=== PATIENT | male | born 1945 | race Caucasian/White ===

== ENCOUNTER 2022-09-24 14:28 | Emergency (ER) | payer MEDICARE ==
[2022-09-24] MEDS ORDERED: LIDOCAINE 1% INJ 10MG/ML (30 ML VIAL-PF) SQ ONE (15:16)
[2022-09-24] MEDS ORDERED: DIPH,PERTUS(ACELL)TETVAC-LF 0.5 ML VIAL IM ONE (15:16)
--- NOTE | 2022-09-24 15:27 | ED ---
General Adult HPI - General Chief complaint: Wound/Laceration Stated complaint: Hand injury Time Seen by Provider: 09/24/22 15:10 Source: patient, RN notes reviewed Mode of arrival: ambulatory Limitations: no limitations - History of Present Illness Initial comments: 77-year-old male presents emergency department chief complaint left hand injury. Patient states she was setting up an extension ladder states the ladder came down onto his left hand. Patient has a laceration he is unsure when his last tetanus was. Patient complains of discomfort, bleeding. Patient denies any other associated injury he does complain of left ear drainage and which she wears urinates. Patient states been having for last several days. - Related Data Allergies Allergy/AdvReac Type Severity Reaction Status Date / Time amoxicillin Allergy Anaphylaxis Verified 09/24/22 14:51 clavulanic acid Allergy Anaphylaxis Verified 09/24/22 14:51 [From Augmentin] Review of Systems ROS Statement: Those systems with pertinent positive or pertinent negative responses have been documented in the HPI. ROS Other: All systems not noted in ROS Statement are negative. Past Medical History Past Medical History: No Reported History History of Any Multi-Drug Resistant Organisms: None Reported Past Surgical History: Tonsillectomy Past Psychological History: No Psychological Hx Reported Smoking Status: Never smoker Past Alcohol Use History: None Reported Past Drug Use History: None Reported General Exam Limitations: no limitations General appearance: alert, in no apparent distress Head exam: Present: atraumatic, normocephalic, normal inspection Eye exam: Present: normal appearance, PERRL, EOMI. Absent: scleral icterus, conjunctival injection, periorbital swelling ENT exam: Present: normal oropharynx, mucous membranes moist, TM's normal bilaterally. Absent: normal exam, normal external ear exam (Left EAC exudates noted) Neck exam: Present: normal inspection, full ROM. Absent: tenderness, meningismus, lymphadenopathy Respiratory exam: Present: normal lung sounds bilaterally. Absent: respiratory distress, wheezes, rales, rhonchi, stridor Cardiovascular Exam: Present: regular rate, normal rhythm, normal heart sounds. Absent: systolic murmur, diastolic murmur, rubs, gallop, clicks Extremities exam: Present: other (Left hand dorsal aspect there is semi- laceration irregular primary skin tear noted) Course Vital Signs 09/24/22 14:48 Temperature 98.3 F Pulse Rate 70 Respiratory 20 Rate Blood Pressure 169/82 O2 Sat by Pulse 99 Oximetry Procedures - Laceration Laceration #1 Consent Obtained: verbal consent Indication: laceration Site: hand Size (cm): 3 Description: stellate, flap, irregular Depth: simple, single layer Anesthesia Technique: local infiltration Amount (mls): 3 Pre-repair: wound explored, irrigated extensively, deep structures intact Type of Sutures: nylon Size of Sutures: 4-0 Number of Sutures: 3 Technique: simple, interrupted Patient Tolerated Procedure: well, no complications Medical Decision Making - Medical Decision Making X-rays negative for acute fracture. Patient's laceration was approximated along with skin tear. Patient does have otitis externa will be discharged on ciprofloxacin. Disposition Clinical Impression: Left otitis externa, Laceration of left hand Disposition: HOME SELF-CARE Condition: Stable Additional Instructions: Use 4 drops twice daily for 7 days. Have sutures removed in 10 days. Please return to the Emergency Department if symptoms worsen or any other concerns. Is patient prescribed a controlled substance at d/c from ED?: No Referrals: Nonstaff,Physician [Primary Care Provider] - 1-2 days Time of Disposition: 15:35
[2022-09-24] MEDS ORDERED: CIPROFLOXACIN-DEXAMETH 0.3-0.1% DROPS 7.5 ML BTL LEFT EAR STA (15:31)
--- NOTE | 2022-09-24 15:37 | XR ---
EXAMINATION TYPE: XR hand complete LT DATE OF EXAM: 09/24/2022 COMPARISON: NONE HISTORY: Pain TECHNIQUE: Three views are submitted. FINDINGS: The osseous structures are intact. Severe narrowing of the trapezial scaphoid joint. Diffuse osteopen ia. There appears to be subcutaneous emphysema along the dorsum the wrist which could be related to h istory of laceration. Narrowing of all DIP joints noted. Mild narrowing of first carpometacarpal join t. Dislocation. IMPRESSION: 1. No definite acute fracture or dislocation if symptoms persist, follow-up study in 7 to 10 days wo uld be suggested for acute soft tissue injury along the dorsum of the wrist. 3. Severe arthropathy correlate posterior
[2022-09-24] MEDS ORDERED: BACITRACIN OINT 1 EACH PACKET TOPICAL ONE (16:02)
[2022-09-24 16:14] VITALS: BP 148/77; PULSE 62; RESP 16; TEMP 98
== END 2022-09-24 16:13 | disposition home or self-care (01) ==
LOC: EC 14:28
DX: S61.412A Laceration without foreign body of left hand, initial encounter (principal); H60.92 Unspecified otitis externa, left ear; Z88.0 Allergy status to penicillin; Z88.1 Allergy status to other antibiotic agents; W10.8XXA Fall (on) (from) other stairs and steps, initial encounter
CPT/HCPCS: 73130; 12002; 99283; 96372; J2001

== ENCOUNTER → 2024-01-21 | Outpatient (CLI) | payer MEDICARE ==
[2024-01-22 03:02] LABS: BUN/Creat Ratio 23.38 Ratio (12.00-20.00); Basophils # (A) 0.04 X 10*3/uL (0.00-0.10); Basophils % (A) 0.4 %; Blood Urea Nitrogen 18.7 mg/dL (9.0-27.0); C Reactive Protein <0.30 mg/dL (0.00-0.80); Chloride 105 mmol/L (96-109); Eosinophils # (A) 0.07 X 10*3/uL (0.04-0.35); Eosinophils % (A) 0.8 %; Glucose 80 mg/dL (70-110); HCT 42.2 % (39.6-50.0); HGB 14.2 g/dL (13.0-17.0); MCH 32.3 pg (27.0-32.0); MCHC 33.6 g/dL (32.0-37.0); MCV 95.9 FL (80.0-97.0); Mean Platelet Volume 10.8 FL (9.5-12.2); Monocytes # (A) 0.61 X 10*3/uL (0.20-1.00); Monocytes % (A) 6.6 %; NRBC Per 100 WBC 0 X 10*3/uL (0.00-0.01); Neutrophils # (A) 7.34 X 10*3/uL (1.80-7.70); Neutrophils % (A) 79.8 %; Platelet Count 223 X 10*3/uL (140-440); RDW 12.8 % (11.5-14.5); Sodium 141 mmol/L (135-145)
[2024-01-22 03:03] LABS: ALT 25 U/L (10-49); AST 23 U/L (14-35); Albumin 4.5 g/dL (3.8-4.9); Albumin/Globulin Ratio 2.05 Ratio (1.60-3.17); Alkaline Phosphatase 63 U/L (41-126); Calcium 9.8 mg/dL (8.7-10.3); Carbon Dioxide 26.1 mmol/L (21.6-31.8); Globulin 2.2 g/dL (1.6-3.3); Total Bilirubin 0.4 mg/dL (0.3-1.2); Total Protein 6.7 g/dL (6.2-8.2)
[2024-01-22 04:27] LABS: Albumin 4.4 g/dL (3.8-4.9); Protein, Total 6.6 g/dL (6.2-8.2)
[2024-01-22 04:28] LABS: Erythrocyte Sedimentation Rate 4 mm/Hr (0-20)
== END | disposition home or self-care (01) ==
LOC: LABWHC1 15:29
PROVIDERS: ATTEND Dermatology MOHS-Micrographic Surgery
DX: R21 Rash and other nonspecific skin eruption (principal)
CPT/HCPCS: 36415; 80053; 84165; 84166; 84443; 85025; 85652; 86038; 86140; 86160